=== PATIENT | male | born 1985 | race Asian ===

== ENCOUNTER 2020-10-16 10:30 | Emergency (ER) | payer SELFPAY ==
[~2020-10-16] VITALS: Ht 170.2 cm; Wt 72.7 kg
[2020-10-16 11:08] LABS: AMPHETAMINE SCREEN, URINE Negative (Negative); BARBITURATE SCREEN, URINE Negative (Negative); BENZODIAZEPINE SCREEN, URINE Negative (Negative); CANNABINOID SCREEN, URINE Positive (Negative); COCAINE SCREEN, URINE Positive (Negative); METHADONE SCREEN, URINE Negative (Negative); OPIATE SCREEN, URINE Negative (Negative)
[2020-10-16 11:14] LABS: BASOPHILS % (AUTO) 1 % (0-1); EOSINOPHILS % (AUTO) 2 % (1-7); LYMPHOCYTES % (AUTO) 30 % (22-44); MEAN CORPUSCULAR HEMOGLOBIN 34.1 pg (27.5-34.5); MEAN CORPUSCULAR HGB CONC 34.7 g/dL (33.2-36.2); MEAN PLATELET VOLUME 8.8 fL (7.4-10.4); MONOCYTES % (AUTO) 7 % (2-9); NEUTROPHILS % (AUTO) 60 % (42-75); PLATELET COUNT 202 x10^3/uL (130-400); RED BLOOD COUNT 4.41 x10^6/uL (4.38-5.82); RED CELL DISTRIBUTION WIDTH 12.5 % (9.4-14.8)
[2020-10-16 11:17] LABS: MD NO
[2020-10-16 11:23] LABS: ALBUMIN 4.5 g/dL (3.4-5.0); ANION GAP 7 mmol/L (5-15); CALCIUM 8.8 mg/dL (8.5-10.1); CHLORIDE 110 mmol/L (98-107)
[2020-10-16 11:27] LABS: ALANINE AMINOTRANSFERASE 37 U/L (12-78); ALKALINE PHOSPHATASE 57 U/L (45-117); BILIRUBIN,TOTAL 0.5 mg/dL (0.2-1.0); CREATININE 1.19 mg/dL (0.7-1.3); SALICYLATE LEVEL 2.7 mg/dL (2.8-20.0); TOTAL PROTEIN 7.6 g/dL (6.4-8.2)
--- NOTE | 2020-10-16 11:43 | NUR ---
PT UP PACING RM. STATES HE WANTS TO LEAVE. PT A&O4, ANSWER'S ALL QUESTIONS WITH NO HESITATION. STEADY GAIT. PROVIER UPDATED.
[2020-10-16 12:06] VITALS: BP 121/83
== END 2020-10-16 12:08 | disposition home or self-care (01) ==
LOC: ED 11:58
DX: F12.129 Cannabis abuse with intoxication, unspecified (principal); F14.129 Cocaine abuse with intoxication, unspecified; R41.0 Disorientation, unspecified; R00.0 Tachycardia, unspecified
CPT/HCPCS: 36415; 80053; 80299; 80307; 80320; 80329; 82140; 85025; 93005; 99284; G0480